=== PATIENT | male | born 1995 | race Caucasian/White ===

== ENCOUNTER 2020-12-07 00:24 | Emergency (ER) | payer MEDICAID, OTHER ==
[2020-12-07 00:29] VITALS: BP 140/89
[2020-12-07] MEDS ORDERED: diphenhydrAMINE 50 MG/ML INJ (BENADRYL) IM STA (00:40)
--- NOTE | 2020-12-07 00:40 | ED Integumentary General ---
General Chief Complaint: Skin/Wound Problems Stated Complaint: INSECT BITE History of Present Illness Date Seen by Provider: Dec 07, 2020 Time Seen by Provider: 00:36 Initial Comments Patient presents with a rash under both arms, around the waist/hip around his sock line. Reports it started tonight. Patient has little bit of swelling to the right underarm. Patient is not sure if he got bit by something or was going on. Patient does admit to possible new laundry detergent. Patient with no fevers chills nausea vomiting or other systemic complaints. Allergies and Home Medications Allergies Coded Allergies: No Known Drug Allergies (Unverified , 02/01/13) Patient Home Medication List Home Medication List Reviewed: Yes Review of Systems Review of Systems Constitutional: see HPI EENTM: no symptoms reported Respiratory: no symptoms reported Cardiovascular: no symptoms reported Gastrointestinal: no symptoms reported Genitourinary: no symptoms reported Musculoskeletal: no symptoms reported Skin: see HPI Psychiatric/Neurological: No Symptoms Reported Endocrine: No Symptoms Reported Past Qjksaqh-Vvuakb-Raqszu Hx Past Medical History Adverse Reaction/Blood Tranf: No Physical Exam Vital Signs Capillary Refill : General Appearance: WD/WN, no apparent distress Cardiovascular: normal peripheral pulses, regular rate, rhythm Respiratory: lungs clear, normal breath sounds Gastrointestinal: non tender, soft Extremities: normal range of motion, non-tender Neurologic/Psychiatric: alert, normal mood/affect, oriented x 3 Skin: rash Skin Problem Location: other (Bilateral torso/inner arm, hips and waist and ankles.) Progress/Results/Core Measures Progress Progress Note : Progress Note Patient's rash seems to be located mainly in the area with tight clothing band. Rash looks consistent with some type of a contact dermatitis possibly from new laundry detergent. I will give him a Benadryl and dexamethasone shot. He should use Benadryl every 8 hours as needed. Departure Impression Primary Impression: Allergic contact dermatitis Qualified Codes: L23.9 - Allergic contact dermatitis, unspecified cause Disposition: 01 HOME, SELF-CARE Condition: Stable Departure-Patient Inst. Referrals: SELFERIKA MD (PCP/Family) Primary Care Physician Patient Instructions: Contact Dermatitis (DC), Skin Rash ED Add. Discharge Instructions: 25 to 50 mg of Benadryl every 8 hours as needed for rash, itchiness All discharge instructions reviewed with patient and/or family. Voiced un derstanding. JASMEET POTTER DO Dec 07, 2020 00:40
== END 2020-12-07 00:50 | disposition home or self-care (01) ==
LOC: EDUNIT# 00:24 → ER FS 00:28
DX: L23.9 Allergic contact dermatitis, unspecified cause (principal)
CPT/HCPCS: 99284

== ENCOUNTER 2022-07-29 11:53 | Emergency (ER) | payer SELFPAY ==
[2022-07-29] MEDS ORDERED: NS IV 1000 ML 1,000 ML IV STA (12:05)
[2022-07-29] MEDS ORDERED: CLINDAMYCIN 600 MG/50 ML IVPB 50 ML IV STA (12:05)
[2022-07-29] MEDS ORDERED: fentaNYL INJ 100 MCG/2 ML AMP IVP STA (12:05)
[2022-07-29 12:13] LABS: BASOPHILS # (AUTO) 0.1 10^3/uL (0.0-0.1); BASOPHILS % (AUTO) 0 % (0-10); EOSINOPHILS # (AUTO) 0.1 10^3/uL (0.0-0.3); EOSINOPHILS % (AUTO) 0 % (0-10); HEMATOCRIT 47 % (40-54); HEMOGLOBIN 16.5 g/dL (13.3-17.7); LYMPHOCYTES # (AUTO) 2.4 10^3/uL (1.0-4.0); LYMPHOCYTES % (AUTO) 17 % (12-44); MEAN CORPUSCULAR HEMOGLOBIN 28 pg (25-34); MEAN CORPUSCULAR HGB CONC 35 g/dL (32-36); MEAN CORPUSCULAR VOLUME 80 fL (80-99); MEAN PLATELET VOLUME 9.9 fL (9.0-12.2); MONOCYTES # (AUTO) 1.3 10^3/uL (0.0-1.0); MONOCYTES % (AUTO) 10 % (0-12); NEUTROPHILS # (AUTO) 9.8 10^3/uL (1.8-7.8); NEUTROPHILS % (AUTO) 72 % (42-75); PLATELET COUNT 336 10^3/uL (130-400); WHITE BLOOD COUNT 13.7 10^3/uL (4.3-11.0)
--- NOTE | 2022-07-29 12:13 | ED EENT ---
History of Present Illness General Chief Complaint: Oral/Throat Problems Stated Complaint: ABCESS IN THROAT, PAINFUL,HARD TO SWALLOW Source: patient History of Present Illness Date Seen by Provider: Jul 29, 2022 Time Seen by Provider: 11:56 Initial Comments 26-year-old male presenting with complaints of 4 days of throat pain and difficulty swallowing. He has had hot and cold flashes. He went to urgent care today and they did a swab of his throat and reported as positive for strep. He does have increased swelling and more pain to the left side of his throat and the urgent care sent him to the emergency department for evaluation of possible peritonsillar abscess. Patient denies having history of problems with his throat. He last ate yesterday and had a sip of coca cola on way to ED. He states the urgent care had not prescribed any antibiotics. Timing/Duration: abrupt, other (4 days) Severity: severe Location: throat Prearrival Treatment: no prearrival treatment Modifying Factors: Worse With Other (swallowing) Associated Symptoms: No change in hearing, No cough, No drooling, No ear drainage, No facial pain/swelling; fever, malaise, poor fluid intake, poor solids intake, sore throat, voice change Allergies and Home Medications Allergies Coded Allergies: No Known Drug Allergies (Unverified , 02/01/13) Patient Home Medication List Home Medication List Reviewed: Yes Review of Systems Review of Systems Constitutional: see HPI Eyes: No Symptoms Reported Ears: No Symptoms Reported Nose: no symptoms reported Mouth: no symptoms reported Throat: see HPI, pain, swelling (left greater than right) Respiratory: no symptoms reported Cardiovascular: no symptoms reported Gastrointestinal: no symptoms reported Musculoskeletal: no symptoms reported Skin: no symptoms reported Neurological: No Symptoms Reported Past Slgtxmj-Ghnusg-Cytjqf Hx Past Medical History Adverse Reaction/Blood Tranf: No Physical Exam Vital Signs Vital Signs - First Documented 07/29/22 11:54 Temp 36.4 Pulse 102 Resp 16 B/P (MAP) 144/89 (107) Pulse Ox 99 O2 Delivery Room Air Height, Weight, BMI Height: '" Weight: 200lbs. oz. [id number]; BMI Method:Stated General Appearance: WD/WN, no apparent distress Eyes: bilateral eye PERRL, bilateral eye EOMI Mouth/Throat: pharynx swelling, pharynx tenderness, tonsillar swelling (left greater than right with slight extension up to the soft palate on left), voice changes Neck: supple, lymphadenopathy (R), lymphadenopathy (L) Cardiovascular: normal peripheral pulses, regular rate, rhythm Respiratory: chest non-tender, lungs clear, normal breath sounds Gastrointestinal: normal bowel sounds, non tender, soft, no pulsatile mass Neurologic/Psychiatric: alert, oriented x 3 Skin: normal color, warm/dry Progress/Results/Core Measures Results/Orders Lab Results Laboratory Tests Test 07/29/22 12:00 Range/Units White Blood Count 13.7 H 4.3-11.0 10^3/uL Red Blood Count 5.93 H 4.30-5.52 10^6/uL Hemoglobin 16.5 13.3-17.7 g/dL Hematocrit 47 40-54 % Mean Corpuscular Volume 80 80-99 fL Mean Corpuscular Hemoglobin 28 25-34 pg Mean Corpuscular Hemoglobin Concent 35 32-36 g/dL Red Cell Distribution Width 12.5 10.0-14.5 % Platelet Count 336 130-400 10^3/uL Mean Platelet Volume 9.9 9.0-12.2 fL Immature Granulocyte % (Auto) 1 % Neutrophils (%) (Auto) 72 42-75 % Lymphocytes (%) (Auto) 17 12-44 % Monocytes (%) (Auto) 10 0-12 % Eosinophils (%) (Auto) 0 0-10 % Basophils (%) (Auto) 0 0-10 % Neutrophils # (Auto) 9.8 H 1.8-7.8 10^3/uL Lymphocytes # (Auto) 2.4 1.0-4.0 10^3/uL Monocytes # (Auto) 1.3 H 0.0-1.0 10^3/uL Eosinophils # (Auto) 0.1 0.0-0.3 10^3/uL Basophils # (Auto) 0.1 0.0-0.1 10^3/uL Immature Granulocyte # (Auto) 0.1 0.0-0.1 10^3/uL Sodium Level 135 135-145 MMOL/L Potassium Level 3.9 3.6-5.0 MMOL/L Chloride Level 99 98-107 MMOL/L Carbon Dioxide Level 22 21-32 MMOL/L Anion Gap 14 5-14 MMOL/L Blood Urea Nitrogen 10 7-18 MG/DL Creatinine 0.76 0.60-1.30 MG/DL Estimat Glomerular Filtration Rate 128 BUN/Creatinine Ratio 13 Glucose Level 124 H 70-105 MG/DL Calcium Level 10.0 8.5-10.1 MG/DL Corrected Calcium 9.6 8.5-10.1 MG/DL Total Bilirubin 0.6 0.1-1.0 MG/DL Aspartate Amino Transf (AST/SGOT) 10 5-34 U/L Alanine Aminotransferase (ALT/SGPT) 19 0-55 U/L Alkaline Phosphatase 109 40-136 U/L Total Protein 9.2 H 6.4-8.2 GM/DL Albumin 4.5 3.2-4.5 GM/DL My Orders Orders - RAFAEL HART MD Comprehensive Metabolic Panel (07/29/22 12:04) Ed Iv/Invasive Line Start (07/29/22 12:04) Cbc With Automated Diff (07/29/22 12:04) Ct Neck (Soft Tissue) W (07/29/22 12:04) Ns Iv 1000 Ml (Sodium Chloride 0.9%) (07/29/22 12:05) Dexamethasone Injection (Decadron Inje (07/29/22 12:05) Fentanyl Inj (Sublimaze Injection) (07/29/22 12:05) Clindamycin 600 Mg/50 Ml Ivpb (Cleocin P (07/29/22 12:05) Iohexol Injection (Omnipaque 350 Mg/Ml 1 (07/29/22 12:15) Received Contrast (Hold Metformin- Contr (07/29/22 12:15) Ns (Ivpb) (Sodium Chloride 0.9% Ivpb Bag (07/29/22 12:15) Penicillin G Benzathine Inject (Bicillin (07/29/22 13:56) Medications Given in ED Current Medications Medications Dose Ordered Sig/Jacobo Route Start Time Stop Time Status Last Admin Dose Admin Iohexol 100 ml ONCE ONCE IV 07/29/22 12:15 07/29/22 12:16 DC 07/29/22 12:20 75 ML Sodium Chloride 100 ml ONCE ONCE IV 07/29/22 12:15 07/29/22 12:16 DC 07/29/22 12:20 100 ML Vital Signs/I&O 07/29/22 07/29/22 11:54 14:17 Temp 36.4 36.4 Pulse 102 95 Resp 16 16 B/P (MAP) 144/89 (107) 137/82 Pulse Ox 99 99 O2 Delivery Room Air Room Air Progress Progress Note #1: Progress Note Potential life-threatening diagnosis of peritonsillar abscess, strep pharyngitis, viral pharyngitis, tonsillar mass. Obtain peripheral IV access and send blood work for complete blood count, compr ehensive metabolic profile. CT scan of the soft tissue neck with IV contrast to evaluate for possible abscess. Administer normal saline 1 L IV fluid bolus for hydration, dexamethasone 10 mg IV for throat pain and swelling, clindamycin 600 mg IV for strep pharyngitis, fentanyl 50 mcg IV for severe pain. Keep patient n.p.o. in case he might need to go to the hospital for surgical drainage. Progress Note #2: Time: 13:14 Progress Note The complete blood count showed an elevated white blood cell count to 13.7 with a left shift. His comprehensive metabolic profile did not show acute sign ificant abnormality. The CT scan of the soft tissue neck with IV contrast has shown a fluid collection for an abscess on the left tonsil. The radiologist reported that they saw an abscess 1.4 x 1.2 x 1.8 cm in the superolateral area of left tonsil. Page placed to Dr. Yoo, ENT mayonnaise mixer for [facility] and [employer] voice mail. 1317 I spoke with operator receptionist for Dr. Yoo and she took basic information and asked for fax of information to be sent and she would get Dr. Yoo to look at it as he is in [place] office today. Progress Note #3: Time: 13:45 Progress Note I discussed the case directly with Dr. Yoo, ear nose and throat surgeon, about his findings of strep throat at the urgent care today and having a abscess seen on CT scan of the soft tissue neck. He requested to have a copy of the CT placed on disc and have the patient come to the clinic in [place]. They will try to do an intraoffice procedure of attempted drainage of the abscess. If he was not able to tolerate that then they may have to take him to the operating room to do it. He did recommend administering Bicillin LA 1,200,000 units IM to treat for strep throat. Patient had also received 600 mg IV clindamycin along with Decadron 10 mg IV. I updated the patient and ordered the Bicillin LA 1,200,000 units IM. Stressed importance of going directly to the ENT clinic in [place] and to not eat or drink anything until he is cleared by ENT. Diagnostic Imaging Diagonstic Imaging: CT Comments NAME: CEZAR ESPINOZA [facility] REC#: [id number] PT STATUS: REG ER : 1995 PHYSICIAN: RAFAEL HART MD ADMIT DATE: 07/29/22/ER FS Draft Date of Exam:07/29/22 CT NECK (SOFT TISSUE) W PROCEDURE: CT neck soft tissue with contrast. TECHNIQUE: Multiple contiguous axial images were obtained through the neck after the administration of contrast. Auto Exposure Controls were utilized during the CT exam to meet ALARA standards for radiation dose reduction. INDICATION: Throat pain and tonsillar swelling. COMPARISON: None available. FINDINGS: The left palatine tonsil is asymmetrically enlarged, and there is a 1.4 x 1.2 x 1.8 cm rim-enhancing abscess along its superolateral border. The enlargement of the tonsil causes mild asymmetric effacement of the oropharynx, but the airway does remain patent. There is no retropharyngeal fluid collection or extension of inflammation into the mediastinum. Multiple mildly enlarged bilateral level 1 and level 2 cervical lymph nodes are reactive in nature. The largest is a left level II-A jugulodigastric 1.9 cm lymph node. Thyroid is normal. The parotid and submandibular glands are normal. There is a large mucus retention cyst in the left maxillary sinus. Other paranasal sinuses are clear where seen. Normal cervical spine. The bilateral common and internal carotid arteries are normal. IMPRESSION: 1. Left palatine peritonsillar abscess. 2. No retropharyngeal extension of abscess, and no abnormal inflammation in the danger space. Dictated on workstation # [id number] Dict: 07/29/22 1230 Trans: 07/29/22 1240 [id number] Interpreted by: ENEDELIA SHEPPARD MD Electronically signed by: Reviewed: Reviewed by Me (Reviewed radiologist report at 1240) Departure Impression Primary Impression: Peritonsillar abscess Additional Impression: Acute streptococcal pharyngitis Disposition: 01 HOME, SELF-CARE Condition: Stable Departure-Patient Inst. Decision time for Depature: 14:10 Referrals: JOY YOO MD SELF,ERIKA BENEDICT (PCP/Family) Primary Care Physician Patient Instructions: Strep Throat ED, Peritonsillar Abscess, Adult Add. Discharge Instructions: Go directly to Dr. Yoo's office in [place]. [address] [facility] [place] [address] Do not eat or drink anything as they are going to try and drain the abscess in the office and if they can not do that they will take you to the hospital and do a surgery procedure in OR. All discharge instructions reviewed with patient and/or family. Voiced understanding. RAFAEL HART MD Jul 29, 2022 12:13
[2022-07-29] MEDS ORDERED: IOHEXOL 350 MG/ML 100 ML (OMNIPAQUE 350) VIAL IV ONE (12:15)
[2022-07-29] MEDS ORDERED: NS 100 ML (IVPB) BAG IV ONE (12:15)
[2022-07-29] MEDS ORDERED: HOLD METFORMIN - RECEIVED CONTRAST 20 ML VIAL IV SCH (12:15)
[2022-07-29 12:37] LABS: BILIRUBIN,TOTAL 0.6 MG/DL (0.1-1.0); CREATININE SERUM 0.76 MG/DL (0.60-1.30); POTASSIUM 3.9 MMOL/L (3.6-5.0)
[2022-07-29 12:38] LABS: ALBUMIN 4.5 GM/DL (3.2-4.5); TOTAL PROTEIN 9.2 GM/DL (6.4-8.2)
--- NOTE | 2022-07-29 12:40 | Diagnostic Imaging Report ---
PROCEDURE: CT neck soft tissue with contrast. TECHNIQUE: Multiple contiguous axial images were obtained through the neck after the administration of contrast. Auto Exposure Controls were utilized during the CT exam to meet ALARA standards for radiation dose reduction. INDICATION: Throat pain and tonsillar swelling. COMPARISON: None available. FINDINGS: The left palatine tonsil is asymmetrically enlarged, and there is a 1.4 x 1.2 x 1.8 cm rim-enhancing abscess along its superolateral border. The enlargement of the tonsil causes mild asymmetric effacement of the oropharynx, but the airway does remain patent. There is no retropharyngeal fluid collection or extension of inflammation into the mediastinum. Multiple mildly enlarged bilateral level 1 and level 2 cervical lymph nodes are reactive in nature. The largest is a left level II-A jugulodigastric 1.9 cm lymph node. Thyroid is normal. The parotid and submandibular glands are normal. There is a large mucus retention cyst in the left maxillary sinus. Other paranasal sinuses are clear where seen. Normal cervical spine. The bilateral common and internal carotid arteries are normal. IMPRESSION: 1. Left palatine peritonsillar abscess. 2. No retropharyngeal extension of abscess, and no abnormal inflammation in the danger space. Dictated by: Dictated on workstation # [id number]
[2022-07-29] MEDS ORDERED: PEN G BENZ (BICILLIN LA) 1.2 M UN/2 ML SYR IM STA (13:56)
[2022-07-29 14:17] VITALS: BP 137/82
== END 2022-07-29 14:18 | disposition home or self-care (01) ==
LOC: EDUNIT# 11:53 → ER FS 11:56
DX: J36 Peritonsillar abscess (principal); Z28.310 Unvaccinated for COVID-19
CPT/HCPCS: 36415; 70491; 80053; 85025